=== PATIENT | male | born 1965 | race Two or more races ===

== ENCOUNTER 2021-03-06 12:23 | Emergency (ER) | payer OTHER ==
[~2021-03-06] VITALS: Ht 180.3 cm; Wt 117.0 kg
[2021-03-06 13:27] VITALS: BP 135/93
[2021-03-06] MEDS ORDERED: TETRACAINE HCL 0.5% OPTH(EYE) SOLN 4ML RIGHTEYE ONE (14:00)
[2021-03-06] MEDS ORDERED: FLUORESCEIN SOD OPTH TEST STRIP RIGHTEYE ONE (14:00)
== END 2021-03-06 14:42 | disposition home or self-care (01) ==
LOC: ER 12:23
DX: H10.9 Unspecified conjunctivitis (principal); E11.9 Type 2 diabetes mellitus without complications